=== PATIENT | female | born 1980 | race Caucasian/White ===

== ENCOUNTER 2019-12-01 09:05 | Outpatient (CLI) | payer OTHER ==
[2019-12-01] MEDS ORDERED: Magnevist 469MG/ML 20 ML VIAL ONE (09:35)
--- NOTE | 2019-12-01 10:54 | MRI ---
MRI brain and sella with and without contrast: 12/01/2019 HISTORY: 39-year-old female with "prolactinoma, hyperprolactinemia, and amenorrhea" COMPARISON: None TECHNIQUE: Multiplanar, multisequence MRI pre and postcontrast sequences, of entire brain, plus thin slice throu gh sella turcica, including dynamic sequences. FINDINGS: In left upper frontal lobe brain parenchyma, there is a tiny focus of T2 and FLAIR hyperintensity, an d tiny, thin, faint contrast opacification. This may be a tiny DVA associated with minimal gliosis. This is highly unlikely to represent a neoplasm. In the christine, there is a small patchy focus of hyperintense signal on the FLAIR axial sequence, withou t enhancement. There is no other intra-axial signal abnormality or abnormal intra-axial enhancement. Ventricles are normal in size and configuration. No mass effect or midline shift. No extra-axial fluid collection. Overall size of the pituitary gland is within normal limits for patient's age and gender. There is an approximately 0.4 cm subtle focus of hyperintense signal on thin slice T2 weighted burris l images, in the left side of the pituitary gland, causing a minimal superior bulge in the left diaphragma sellae. This is exhibits slightly hypointense on precontrast T1 WI, and slightly delayed e nhancement on the dynamic postcontrast sequences. On the postcontrast standard nondynamic T1-weighted thin slices, the central portion of this lesion exhibits increased enhancement relative t o the rest of the pituitary gland. Infundibular stalk is at midline. Optic chiasm is normal, with no extrinsic compression. Cavernous si nuses are normal. IMPRESSION: 1.) Evidence for approximately 4 mm left-sided pituitary microadenoma. 2) small patch of signal abnormality in the christine without enhancement. This is nonspecific, but could represent chronic ischemic white matter changes. 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
== END 2019-12-01 09:06 | disposition home or self-care (01) ==
LOC: BICMRI 09:05
PROVIDERS: ATTEND Family Medicine
DX: D35.2 Benign neoplasm of pituitary gland (principal); R90.89 Other abnormal findings on diagnostic imaging of central nervous system
CPT/HCPCS: 70553; A9579

== ENCOUNTER 2021-08-02 08:13 | Outpatient (CLI) | payer OTHER ==
[2021-08-02] MEDS ORDERED: Magnevist 469MG/ML 20 ML VIAL ONE (10:09)
== END 2021-08-02 08:14 | disposition home or self-care (01) ==
LOC: BICMRI 08:13
PROVIDERS: ATTEND Family Medicine
DX: N91.2 Amenorrhea, unspecified (principal); E22.1 Hyperprolactinemia; E23.6 Other disorders of pituitary gland
CPT/HCPCS: 70553; A9579